=== PATIENT | female | born 1995 | race African-American/Black ===

== ENCOUNTER 2016-09-20 14:24 | Emergency (ER) | payer OTHER ==
[2016-09-20 14:52] VITALS: BP 135/75
--- NOTE | 2016-09-20 14:59 | EDM.PDOC ---
ED HPI Trauma - General Chief Complaint: Upper Extremity Injury/Pain Stated Complaint: FINGER Time Seen by Provider: 09/20/16 14:50 Source: Reports: Patient History Limitations: Reports: No limitations - History of Present Illness INITIAL COMMENTS - FREE TEXT/NARRATIVE: HISTORY AND PHYSICAL: History of present illness: [21-year-old female with no significant past medical history now presents to the emergency department after an injury to her left ring finger patient works a [employer] and abortus excellently dropped on the base of her ring finger. She was wearing her engagement ring and it got dented and ellipticized.] Because of the rings oval-shaped spitting more pressure on her finger and her finger has become swollen and painful. She is able to move bend flex and use her finger normally is just uncomfortable where the ring is putting pressure. No wound. No bone or bleeding problems. No prior injury to this digit Review of systems: As per history of present illness and below otherwise all systems reviewed and negative. Past medical history: As per history of present illness and as reviewed below otherwise noncontributory. Surgical history: As per history of present illness and as reviewed below otherwise noncontributory. Social history: No reported history of drug or alcohol abuse. Family history: As per history of present illness and as reviewed below otherwise noncontributory. Physical exam: HEENT: Atraumatic, normocephalic, negative for conjunctival pallor or scleral icterus, mucous membranes moist, throat clear, neck supple, trachea midline. Lungs: Respiratory rate normal and symmetrical excursion of chest wall. Heart: No tachycardia Abdomen:nondistended, Pelvis: Stable nontender. Genitourinary: Deferred. Rectal: Deferred. Extremities: Atraumatic, negative for cords or calf pain. Neurovascular unremarkable. Left ring finger with narrow ring dented and ellipticized with mild swelling distal to the ring. No bony tenderness. Normal range of motion with discomfort only from dented ring. Normal flexion and extension. Neurovascularly intact distally Neuro: Awake, alert, oriented. Motor and sensory unremarkable throughout. Exam nonfocal. Diagnostics: [] Therapeutics: Procedure: Removal of demonstrating constricting base of left finger. Patient sitting comfortably and position palm up. While sitting in front of her pacing patient ring cutter guard was introduced under the ring on the palmar aspect at the base of the fourth digit. Blade was manually turned with crank and ring was successfully cut. 2 hemostats were used to clamp to the 2 ends of the back of the ring in by manual external rotation administered to widen the effective ring diameter. Patient tolerated well no complications Impression: [] Plan: [Clinical findings consistent with mild contusion at the base of the left fourth digit but no bony tenderness and normal painless range of motion after ring removed. Pain and discomfort as well as distal swelling was secondary to lateral compression from ellipticized ring. No clinical evidence of sprain or avulsion. Patient asymptomatic with full and normal flexion extension. No further imaging or workup indicated. Patient will followup with PCP. strict return precautions given] Definitive disposition and diagnosis as appropriate pending reevaluation and review of above. Allergies/ADRs: Allergies No Known Allergies Allergy (Verified 05/15/15 15:10) Home Medications: Ambulatory Orders . [No Known Home Meds] 05/15/15 [Confirmed 05/15/15] Past Medical History - Past Health History Medical/Surgical History: Denies Medical/Surgical History Social & Family History - Tobacco Use Smoking Status *Q: Never Smoker Second Hand Smoke Exposure: No - Recreational Drug Use Recreational Drug Use: No Review of Systems - Review of Systems Review Of Systems: See Below (Per history of present illness) Trauma Exam - Physical Exam Exam: See Below (Per history of present illness) Course - Vital Signs Last Recorded V/S: Last Vital Signs Temp 36.9 C 09/20/16 14:49 Pulse 99 09/20/16 14:49 Resp 16 09/20/16 14:49 BP 135/75 09/20/16 14:49 Pulse Ox 100 09/20/16 14:49 Departure - Departure Time of Disposition: 14:54 Disposition: Home, Self-Care 01 Condition: good Clinical Impression: Contusion of finger of left hand, Crushing injury of left ring finger Instructions: Crush Injury, Fingers or Toes, [id number] Referrals: PCP,None [Primary Care Provider] - Forms: ED Department Discharge Additional Instructions: The following information is given to patients seen in the emergency department who are being discharged to home. This information is to outline your options for follow-up care. We provide all patients seen in our emergency department with a follow-up referral. The need for follow-up, as well as the timing and circumstances, are variable depending upon the specifics of your emergency department visit. If you don't have a primary care physician on staff, we will provide you with a referral. We always advise you to contact your personal physician following an emergency department visit to inform them of the circumstance of the visit and for follow-up with them and/or the need for any referrals to a consulting specialist. The emergency department will also refer you to a specialist when appropriate. This referral assures that you have the opportunity for follow-up care with a specialist. All of these measure are taken in an effort to provide you with optimal care, which includes your follow-up. Under all circumstances we always encourage you to contact your private physician who remains a resource for coordinating your care. When calling for follow-up care, please make the office aware that this follow-up is from your recent emergency room visit. If for any reason you are refused follow-up, please contact the [facility] Emergency Department at and asked to speak to the emergency department charge nurse. Your ring was misshapened by the impact of a board falling on her hand. This caused a diffusion of your left ring finger. Your ring has been removed and now your use and range of motion of the finger is normal and you have no evidence of fracture and no wound. Use ice and elevate the hand today if it's sore. Take Motrin and Tylenol as needed for pain. [employer] is typically reshape and repair the cut ring by soldering. Followup with your DrMolina and return immediately for new severe or worsening symptoms
== END 2016-09-20 15:05 | disposition home or self-care (01) ==
LOC: MW.ED 14:24
DX: S67.195A Crushing injury of left ring finger, initial encounter (principal); S60.042A Contusion of left ring finger without damage to nail, initial encounter; W49.04XA Ring or other jewelry causing external constriction, initial encounter
CPT/HCPCS: 99282; 99283

== ENCOUNTER 2017-05-29 09:02 | Emergency (ER) | payer OTHER, MEDICAID ==
[2017-05-29] MEDS ORDERED: Lidocaine 1% 20 ML MDV INJECT ONE (09:40)
[2017-05-29] MEDS ORDERED: Diphtheria,Pertussis(Acell),Tetanus Vaccine 0.5 ML Syringe IM ONE (09:41)
[2017-05-29] MEDS ORDERED: Bacitracin Oint 1 GM U/D Packet TOP ONE (10:16)
--- NOTE | 2017-05-29 10:16 | EDM.PDOC ---
ED HPI GENERAL MEDICAL PROBLEM - General Chief Complaint: Lower Extremity Injury/Pain Stated Complaint: LEFT THIGH PAIN WORK RELATED Time Seen by Provider: 05/29/17 09:36 Source of Information: Reports: Patient History Limitations: Reports: No Limitations - History of Present Illness INITIAL COMMENTS - FREE TEXT/NARRATIVE: History of present illness: []Patient works at [employer] and sat on a [employer] and a razor blade was on it cut back of her left thigh this morning. Review of systems: As per history of present illness and below otherwise all systems reviewed and negative. Past medical history: As per history of present illness and as reviewed below otherwise noncontributory. Surgical history: As per history of present illness and as reviewed below otherwise noncontributory. Social history: No reported history of drug or alcohol abuse. Family history: As per history of present illness and as reviewed below otherwise noncontributory. Physical exam: General: Well developed, well nourished in NAD HEENT: Atraumatic, normocephalic, pupils reactive, negative for conjunctival pallor or scleral icterus, mucous membranes moist, throat clear, neck supple, nontender, trachea midline. Lungs: Clear to auscultation, breath sounds equal bilaterally, chest nontender. Heart: S1S2, regular, negative for clicks, rubs, or JVD. Abdomen: Soft, nondistended, nontender. Negative for masses or hepatosplenomegaly. Negative for costovertebral tenderness. Pelvis: Stable nontender. Genitourinary: Deferred. Rectal: Deferred. Extremities: Atraumatic, negative for cords or calf pain. Neurovascular unremarkable. Neuro: Awake, alert, oriented. Cranial nerves II through XII unremarkable. Cerebellum unremarkable. Motor and sensory unremarkable throughout. Exam nonfocal. Diagnostics: [] Therapeutics: []Tetanus updated Impression: []Left posterior thigh laceration 1 cm Plan: [] staple removal in 7-10 days, Tylenol Motrin for pain and keep wound cleaned return if any symptoms change or worsen Definitive disposition and diagnosis as appropriate pending reevaluation and review of above. Left Leg Pain Score (Numeric/FACES): 6 - Related Data Allergies Allergy/AdvReac Type Severity Reaction Status Date / Time No Known Allergies Allergy Verified 05/29/17 09:21 Home Meds: Home Meds . [No Known Home Meds] 05/15/15 [History] Past Medical History - Past Health History Medical/Surgical History: Denies Medical/Surgical History HEENT History: Reports: None Cardiovascular History: Reports: None Respiratory History: Reports: None Gastrointestinal History: Reports: None Genitourinary History: Reports: None FAMILY SERVICES COORDINATOR History: Reports: None Musculoskeletal History: Reports: None Neurological History: Reports: None Psychiatric History: Reports: None Endocrine/Metabolic History: Reports: None Hematologic History: Reports: None Immunologic History: Reports: None Oncologic (Cancer) History: Reports: None Dermatologic History: Reports: None - Infectious Disease History Infectious Disease History: Reports: None - Past Surgical History Head Surgeries/Procedures: Reports: None HEENT Surgical History: Reports: None Cardiovascular Surgical History: Reports: None Respiratory Surgical History: Reports: None GI Surgical History: Reports: None Female Surgical History: Reports: None Endocrine Surgical History: Reports: None Neurological Surgical History: Reports: None Musculoskeletal Surgical History: Reports: None Oncologic Surgical History: Reports: None Dermatological Surgical History: Reports: None Social & Family History - Family History Family Medical History: Noncontributory - Tobacco Use Smoking Status *Q: Never Smoker Second Hand Smoke Exposure: No - Caffeine Use Caffeine Use: Reports: None - Recreational Drug Use Recreational Drug Use: No Review of Systems - Review of Systems Review Of Systems: See Below (See history of present illness) ED EXAM, GENERAL - Physical Exam Exam: See Below (See history of present illness) Course - Vital Signs Last Recorded V/S: Last Vital Signs Temp 97.6 F 05/29/17 09:18 Pulse 78 05/29/17 09:18 Resp 16 05/29/17 09:18 BP 123/80 05/29/17 09:18 Pulse Ox 99 05/29/17 09:18 - Orders/Labs/Meds Orders: Active Orders 24 hr Category Date Time Status Vaccines to be Administered [RC] PER UNIT ROUTINE Care 05/29/17 09:41 Active Meds: Medications Discontinued Medications Generic Name Dose Route Start Last Admin Trade Name Freq PRN Reason Stop Dose Admin Diphtheria/Tetanus/Acell Pertussis 0.5 ml 05/29/17 09:41 05/29/17 09:59 Adacel IM 05/29/17 09:42 0.5 ml .ONCE ONE Administration Lidocaine HCl 20 ml 05/29/17 09:40 05/29/17 10:03 Xylocaine 1% INJECT 05/29/17 09:41 20 ml ONETIME ONE Administration Departure - Departure Time of Disposition: 10:10 Disposition: Home, Self-Care 01 Condition: Good Clinical Impression: Laceration of left thigh Qualifiers: Encounter type: initial encounter Qualified Code(s): S71.112A - Laceration without foreign body, left thigh, initial encounter - Discharge Information Referrals: PCP,None [Primary Care Provider] - Additional Instructions: The following information is given to patients seen in the emergency department who are being discharged to home. This information is to outline your options for follow-up care. We provide all patients seen in our emergency department with a follow-up referral. The need for follow-up, as well as the timing and circumstances, are variable depending upon the specifics of your emergency department visit. If you don't have a primary care physician on staff, we will provide you with a referral. We always advise you to contact your personal physician following an emergency department visit to inform them of the circumstance of the visit and for follow-up with them and/or the need for any referrals to a consulting specialist. The emergency department will also refer you to a specialist when appropriate. This referral assures that you have the opportunity for follow-up care with a specialist. All of these measure are taken in an effort to provide you with optimal care, which includes your follow-up. Under all circumstances we always encourage you to contact your private physician who remains a resource for coordinating your care. When calling for follow-up care, please make the office aware that this follow-up is from your recent emergency room visit. If for any reason you are refused follow-up, please contact the [facility] Emergency Department at and asked to speak to the emergency department charge nurse. Return to ER for staple removal in 7-10 days, Tylenol Motrin for pain and keep wound clean and keep dry for 24 hours. Turn if any symptoms change or worsen. Follow-up with PMD as needed [facility] [address] [place] [id number] - My Orders Last 24 Hours: My Active Orders 05/29/17 09:41 Vaccines to be Administered [RC] PER UNIT ROUTINE - Assessment/Plan Last 24 Hours: My Active Orders 05/29/17 09:41 Vaccines to be Administered [RC] PER UNIT ROUTINE
[2017-05-29 10:35] VITALS: BP 126/70
== END 2017-05-29 10:26 | disposition home or self-care (01) ==
LOC: MW.ED 09:02
DX: S71.112A Laceration without foreign body, left thigh, initial encounter (principal); Z23 Encounter for immunization; W26.8XXA Contact with other sharp object(s), not elsewhere classified, initial encounter; Y99.0 Civilian activity done for income or pay
CPT/HCPCS: 12001; 90471; 90715; 99282; 99282-25

== ENCOUNTER 2017-06-12 15:23 | Emergency (ER) | payer OTHER, MEDICAID | END 2017-06-12 16:00 | disposition left against medical advice (07) | LOC: MW.ED 15:23 | DX: Z53.21 Procedure and treatment not carried out due to patient leaving prior to being seen by health care provider (principal) ==